=== PATIENT | female | born 1955 | race Caucasian/White ===

== ENCOUNTER 2020-05-16 11:29 | Outpatient (REF) | payer MEDICARE, SELFPAY ==
[2020-05-16 13:54] LABS: Hematocrit 42.3 % (37-47); Hemoglobin 14.2 g/dl (12.0-16.0); Mean Corpuscular HGB Conc 33.6 g/dl (31.0-35.0); Mean Corpuscular Hemoglobin 27.8 pg (27.0-33.0); Mean Corpuscular Volume 82.8 fL (80-98); Mean Platelet Volume 10.5 fL (9.4-12.3); Platelet Count 252 X10*3/uL (160-400); Red Blood Count 5.11 X10*6/uL (4.20-5.50); Red Cell Distribution Width 14.3 % (11.0-16.0)
[2020-05-16 14:21] LABS: Alanine Aminotransferase 27 U/L (0-31); Albumin Level 4.4 g/dL (3.5-5.0); Alkaline Phosphatase 84 U/L (39-117); Anion Gap 10 (12-20); Aspartate Amino Transferase 18 U/L (5-31); Bilirubin Direct 0.3 mg/dL (0.0-0.5); Blood Urea Nitrogen 15 mg/dL (9-16); Calcium 9.7 mg/dL (8.4-10.2); Carbon Dioxide 29 mmol/L (22-29); Chloride 104 mmol/L (96-108); Cholesterol 225 mg/dL; Estimated Glomerular Filt Rate > 60; Glucose Fasting 113 mg/dL (60-99); HDL Cholesterol 66 mg/dL; LDL Cholesterol Calculated 141 mg/dl; Potassium 4.2 mmol/L (3.3-5.1); Sodium 139 mmol/L (135-145); Total Protein 6.8 g/dL (6.5-8.0); Triglycerides 92 mg/dL
[2020-05-16 14:28] LABS: TSH reflex Free T4 1.61 uIU/mL (0.32-4.0)
== END 2020-05-16 11:30 | disposition home or self-care (01) ==
LOC: HO.WFDLDS 11:29
PROVIDERS: PCP Hospitalist; Visit Provider Hospitalist
DX: Z00.00 Encounter for general adult medical examination without abnormal findings (principal)
CPT/HCPCS: 36415; 80048; 80061; 80076; 84443; 85027

== ENCOUNTER 2021-01-19 13:17 | Outpatient (REF) | payer MEDICARE, SELFPAY ==
--- NOTE | ~2021-01-19 | MM_ITS ---
EXAMINATION: MM SCREENING DIGITAL BREAST TOMOSYNTHESIS, BILATERAL CLINICAL INFORMATION: Screening. Asymptomatic. The lifetime risk of breast cancer based on the Tyrer-Cuzick Model is 7%. COMPARISON: Mammography: 10/26/2019, 07/24/2018, 07/02/2016 TECHNIQUE: Digital breast tomosynthesis is performed in both the craniocaudal and mediolateral oblique views along with computer-aided detection (CAD). Synthesized 2D images are generated from the tomosynthesis. FINDINGS: There are scattered areas of fibroglandular density (ACR BI-RADS breast composition Category b). There are no significant masses, abnormal calcifications, or other abnormalities. Incidental dermal lesion overlies posterior 11:00 right breast. There is a benign coarse calcification central upper outer left breast. No significant changes. MM/MM tomosynthesis screening BI IMPRESSION: No mammographic evidence of malignancy. ASSESSMENT: BI-RADS 2: Benign RECOMMENDATION: Routine annual mammography screening. This patient's information was entered into a reminder system with a target due date for their next mammogram.
== END 2021-01-19 13:18 | disposition home or self-care (01) ==
LOC: HO.MAMMO 13:17
PROVIDERS: Visit Provider Family Medicine
DX: Z12.31 Encounter for screening mammogram for malignant neoplasm of breast (principal)
CPT/HCPCS: 77063; 77067

== ENCOUNTER 2021-03-28 19:07 | Outpatient (REF) | payer MEDICARE, SELFPAY | END 2021-03-28 19:08 | disposition home or self-care (01) | LOC: HO.LNP 19:07 | PROVIDERS: Visit Provider Hospitalist | DX: N39.0 Urinary tract infection, site not specified (principal) | CPT/HCPCS: 87086; 87088; 87186 ==

== ENCOUNTER 2021-08-30 12:38 | Outpatient (REF) | payer MEDICARE, SELFPAY ==
[2021-08-30 14:00] LABS: Hematocrit 40.5 % (37.0-47.0); Hemoglobin 13.6 g/dl (12.0-16.0); Mean Corpuscular HGB Conc 33.6 g/dl (31.0-35.0); Mean Corpuscular Volume 83.5 fL (80.0-98.0); Mean Platelet Volume 11.1 fL (9.4-12.3); Platelet Count 245 X10*3/uL (160-400); Red Blood Count 4.85 X10*6/uL (4.20-5.50); Red Cell Distribution Width 14.6 % (11.0-16.0); White Blood Count 5.9 X10*3/uL (4.8-10.8)
[2021-08-30 14:52] LABS: Alanine Aminotransferase 41 U/L (0-31); Albumin Level 4.2 g/dL (3.5-5.0); Alkaline Phosphatase 95 U/L (39-117); Anion Gap 11 (12-20); Aspartate Amino Transferase 27 U/L (5-31); Bilirubin Total 0.9 mg/dL (0.0-1.0); Blood Urea Nitrogen 16 mg/dL (9-16); Carbon Dioxide 26 mmol/L (22-29); Chloride 105 mmol/L (96-108); Cholesterol 220 mg/dL; Estimated Glomerular Filt Rate > 60; Glucose Fasting 100 mg/dL (60-99); HDL Cholesterol 65 mg/dL; LDL Cholesterol Calculated 140 mg/dl; Sodium 138 mmol/L (135-145); Total Protein 6.6 g/dL (6.5-8.0); Triglycerides 77 mg/dL
[2021-08-30 14:57] LABS: TSH reflex Free T4 1.15 uIU/mL (0.32-4.0)
== END 2021-08-30 12:39 | disposition home or self-care (01) ==
LOC: HO.WFDLDS 12:38
PROVIDERS: Visit Provider Hospitalist
DX: I10 Essential (primary) hypertension (principal); Z79.899 Other long term (current) drug therapy; Z13.9 Encounter for screening, unspecified
CPT/HCPCS: 36415; 80053; 80061; 84443; 85027

== ENCOUNTER 2022-07-06 14:28 | Outpatient (REF) | payer MEDICARE, SELFPAY ==
--- NOTE | ~2022-07-06 | MM_ITS ---
EXAMINATION: MM SCREENING DIGITAL BREAST TOMOSYNTHESIS, BILATERAL CLINICAL INFORMATION: Screening. Asymptomatic. The lifetime risk of breast cancer based on the Tyrer-Cuzick Model is 6%. COMPARISON: Mammography: 01/19/2021, 10/26/2019, 07/24/2018, 07/02/2016 TECHNIQUE: Digital breast tomosynthesis is performed in both the craniocaudal and mediolateral oblique views along with computer-aided detection (CAD). Synthesized 2D images are generated from the tomosynthesis. FINDINGS: There are scattered areas of fibroglandular density (ACR BI-RADS breast composition Category b). Parenchymal pattern is similar to prior studies and there is no significant mass, developing density, architectural abnormality. There are some benign grouped calcifications again seen mid central 3:00 left breast. A dermal lesion is again noted overlying right axilla. There are no significant changes. MM/MM tomosynthesis screening BI IMPRESSION: No mammographic evidence of malignancy. ASSESSMENT: BI-RADS 2: Benign RECOMMENDATION: Routine annual mammography screening. This patient's information was entered into a reminder system with a target due date for their next mammogram.
== END 2022-07-06 14:29 | disposition home or self-care (01) ==
LOC: HO.MAMMO 14:28
PROVIDERS: Visit Provider Family Medicine
DX: Z12.31 Encounter for screening mammogram for malignant neoplasm of breast (principal)
CPT/HCPCS: 77063; 77067

== ENCOUNTER 2023-03-01 13:04 | Outpatient (AMB) | payer MEDICARE, SELFPAY ==
[2023-03-01 13:26] VITALS: BP 132/78; PULSE 75; O2SAT 97; BMI 33.5
--- NOTE | 2023-03-01 13:26 | MHC.PC.OV ---
Vital Signs 03/01/23 13:26 Height 5 ft 4 in Weight 195 lb 2 oz BMI 33.5 BP 132/78 Blood Pressure Location Lt brachial Position Sitting Pulse 75 Pulse Source Pulse Oximeter Pulse Oximetry (%) 97 Oxygen Delivery Method Room Air Intake Visit Reasons: Transfer of care - mood and medications Intake Note: Patient is here for transfer of care for mood and medications. Allergies No Known Allergies Allergy (Verified 03/01/23 13:28) Medication List - Last Reconciled 03/01/23 by Carlos Luna MD citalopram 20 mg PO DAILY hydrochlorothiazide 25 mg PO QAM 3 months lisinopril 20 mg PO DAILY scopolamine base 1 patch transdermal Q3D PRN Tobacco use date assessed: 03/01/23 Fall risk assessment: No Falls in past year Last assessed Fall Risk: 03/01/23 HPI Transfer of care - mood and medications HPI Details Transfer of care Prior PCP:?SV Last office visit/CPE: Acute issue(s): Toenail fungus Anxiety/mood -Notes citalopram 20mg daily has been working well for her and mood is in control. PMHx: Hypertension, Anxiety SurgHx: Bilateral knee replacement FHx: FHx of diabetes. SocHx: Nonsmoker. EtOH None. HPI Comments History of Present Illness Details Documentation assistance for Carlos Luna MD, was provided by Jagdeep Ramires, [employer] on 03/01/2023 1:47 PM EST. [place], Dr. Luna, have read, observed, and verified documentation. [facility] Medical History Hypertension Surgical History History of knee surgery Family History Father History of Legionnaire's disease Mother Diabetes Stroke Social History Housing: House Alcohol intake: never Patient Tobacco Use Status: Never used Tobacco e-Cigarette/Vaping Use: Never Used Second Hand Smoke Exposure: No service: No Current occupational status: retired Cognitive needs: No Hearing needs: No Vision needs: Yes (Glasses) Questionnaire PHQ-9 Over the last 2 weeks, how often have you been bothered by any of the following problems? 1. Little interest or pleasure in doing things: not at all 2. Feeling down, depressed, or hopeless: not at all 3. Trouble falling or staying asleep, or sleeping too much: not at all 4. Feeling tired or having little energy: not at all 5. Poor appetite or overeating: not at all 6. Feeling bad about yourself - or that you are a failure or have let yourself or your family down: not at all 7. Trouble concentrating on things, such as reading the newspaper or watching television: not at all 8. Moving or speaking so slowly that other people could have noticed. Or the opposite - being so fidgety or restless that you have been moving around a lot more than usual: not at all 9. Thoughts that you would be better off or of hurting yourself in some way: not at all Total score: 0 Depression Screening Interpretation: Negative Depression Screening Done: Yes 54147 - PHQ-9 Billing: Yes Source: Developed by Drs. Keith Clark, Pricila Toribio, Isaiah Wiklinson and colleagues, with an educational patricia from [employer]. Thrive Questionnaire Date Thrive assessed: 03/01/21 LENI-7 AMB Questionnaire LENI-7 Date LENI - 7 assessed: 03/01/23 Feeling nervous, anxious, or on edge: 0 = Not at all Not being able to stop or control worryin = Not at all Worrying too much about different things: 0 = Not at all Trouble relaxin = Not at all Being so restless that it is hard to sit still: 0 = Not at all Becoming easily annoyed or irritable: 0 = Not at all Feeling afraid as if something awful might happen: 0 = Not at all Total LENI-7 score (0-4 normal; 5-9 mild; 10-14 moderate; 15-21 severe): 0 Source: Developed by Drs. Keith Clark, Pricila Toribio, Isaiah Wilkinson and colleagues, with an educational patricia from [employer]. LENI-7 Assessment Billing LENI-7 Assessment Tool: LENI-7 Assessment 00115 Review of Systems Const Denies chills, Denies fatigue, Denies fever(s), Denies headache(s) and Denies weakness ENT Denies dizziness and Denies headache(s) Card Denies chest pain, Denies lightheadedness, Denies dyspnea and Denies other (Palpitations) Resp Denies cough, Denies dyspnea, Denies wheezing and Denies other ( shortness of breath) Musc Denies numbness and Denies tingling Neuro Denies dizziness, Denies headache(s), Denies numbness, Denies tingling, Denies paresthesias and Denies weakness Psych Reports anxiety Endo Denies fatigue Aller/Immun Denies wheezing Physical exam (Primary Care) Vital Signs: Last Vital Signs Pulse 75 03/01/23 13:26 BP 132/78 03/01/23 13:26 Pulse Ox 97 03/01/23 13:26 Oxygen Delivery Method Room Air 03/01/23 13:26 BMI result Body Mass Index 33.5 Tobacco/Smoking Status: Tobacco use Status Tobacco use date assessed 03/01/23 03/01/23 13:30 Patient Tobacco Use Status Never used Tobacco 03/01/23 13:26 e-Cigarette/Vaping Use Never Used 03/01/23 13:26 PHQ-9: PHQ-9 Score PHQ-9: Total score 0 03/01/23 13:33 Depression Screening Interpretation: Negative Thrive Assessment: Date of Thrive Assessment Date Thrive assessed 03/01/21 03/01/23 13:26 Const General: no acute distress and well developed Nutritional Appearance: well nourished Orientation/consciousness: patient oriented x3 HENMT Head: Yes normocephalic and Yes atraumatic Eyes General: appearance normal, both eyes and all related structures Pupils: Equal, round and reactive pupils present EOM: EOMs intact bilaterally Resp Effort & Inspection: normal respiratory effort Auscultation: clear to auscultation bilaterally Cardio Rate: regular rate Rhythm: regular rhythm Heart sounds: S1 normal heart sound present, S2 normal heart sound present, no gallops, no murmurs and no rubs Neuro General: patient oriented x3 and gait normal Cranial nerves: Yes Equal, round and reactive pupils present Psych Affect: normal affect Assessment and Plan Assessment & Plan (1) Hypertension, essential: Code(s): I10 - Essential (primary) hypertension Plan: Blood?pressure?is?controlled.??Goal?is?less?than?140/90 Continue?current?medication Encouraged?sodium/salt?avoidance Encouraged?exercise?and?weight?loss (2) Anxiety: Code(s): F41.9 - Anxiety disorder, unspecified Plan: Patient?was?started?on?medication?when?her??passed?away?from?COVID-19?after?a?long?hospital?stay Controlled?on?citalopram. Continue?current?medication (3) Elevated ALT measurement: Code(s): R74.01 - Elevation of levels of liver transaminase levels Plan: Very?mild?elevation?in?her?ALT?level This?was?at?her?prior?lab?draw?in?2021 Most?likely?secondary?to?fatty?liver?disorder. Will?repeat?this. Advised?weight?loss?and?good?hydration If?elevated,?will?check?ultrasound?of?her?liver (4) Toenail fungus: Code(s): B35.1 - Tinea unguium Plan: Severe?nail?fungus?on?all?10?toes?with?thickened?black?nails. She?has?tried?many?topical?regimens?and?seen?Podiatry?with?aggressive?filing?and?care?as?well. Prior?physician?declined?to?use?oral?terbinafine. Review?of?her?labs?shows?that?she?had?a?mildly?elevated?ALT. We?discussed?that?at?present?she?is?not?a?candidate?for?this?medication. Will?repeat?her?liver?enzymes We?discussed?that?if?they?are?in?the?normal?range?we?could?consider?using?that?medication?with?a?very?low?threshold?to?stop?it?if?there?is?any?elevation?in?her?liver?enzymes. (5) Motion sickness: Code(s): T75.3XXA - Motion sickness, initial encounter (6) Laboratory exam ordered as part of routine general medical examination: Code(s): Z00.00 - Encounter for general adult medical examination without abnormal findings Orders: Orders Comprehensive [place]. Panel Fast Today Z00.00 - Encounter for general adult medical examination without abnormal findings Complete Blood Count Auto Diff Today Z00.00 - Encounter for general adult medical examination without abnormal findings Lipid Panel Today Z00.00 - Encounter for general adult medical examination without abnormal findings Microalbumin, Random (w Creat) Today I10 - Essential (primary) hypertension UA and rflx microscopic Today Z00.00 - Encounter for general adult medical examination without abnormal findings TSH reflex Free T4 Today Z00.00 - Encounter for general adult medical examination without abnormal findings Medications: Refilled citalopram 20 mg PO DAILY 90 tabs 2RF scopolamine base pt traveling 1 patch transdermal Q3D PRN 5 ea 2RF nausea and vomiting lisinopril 20 mg PO DAILY 90 tabs 3RF I10 - Essential (primary) hypertension hydrochlorothiazide 25 mg PO QAM 90 tabs 1RF 3 months I10 - Essential (primary) hypertension Coding Level of Care Code Est Pt Level 4 (74975) Diagnoses Hypertension, essential I10 Anxiety F41.9 Elevated ALT measurement R74.01 Toenail fungus B35.1 Motion sickness T75.3XXA Laboratory exam ordered as part of routine general medical examination Z00.00 Additional Codes LENI-7 Assessment Billing - LENI-7 Assessment Tool: LENI-7 Assessment 44141 ([id number])
== END 2023-03-01 14:09 | disposition home or self-care (01) ==
PROVIDERS: PCP Hospitalist; Visit Provider Family Medicine
DX: I10 Essential (primary) hypertension (principal); F41.9 Anxiety disorder, unspecified; R74.01 Elevation of levels of liver transaminase levels; B35.1 Tinea unguium; T75.3XXA Motion sickness, initial encounter
CPT/HCPCS: 99214

== ENCOUNTER 2023-03-08 11:08 | Outpatient (REF) | payer MEDICARE, SELFPAY ==
[2023-03-08 13:27] LABS: MANUAL DIFF FLAG NO
[2023-03-08 13:34] LABS: Basophils Percent Auto 0.4 % (0-2); Eosinophils Absolute Auto 0.2 X10*3/uL (0.0-0.4); Eosinophils Percent Auto 2.2 % (0-4); Hematocrit 43.7 % (37.0-47.0); Hemoglobin 14.6 g/dl (12.0-16.0); Imm Gran Abs Auto 0.02 X10*3/uL (0.00-0.03); Imm Gran Pct Auto 0.3 % (0.0-0.4); Lymphocytes Absolute Auto 2.3 X10*3/uL (1.2-4.9); Lymphocytes Percent Auto 33.4 % (20-40); Mean Corpuscular HGB Conc 33.4 g/dl (31.0-35.0); Mean Corpuscular Hemoglobin 27.8 pg (27.0-33.0); Mean Corpuscular Volume 83.1 fL (80.0-98.0); Mean Platelet Volume 10.6 fL (9.4-12.3); Monocytes Absolute Auto 0.5 X10*3/uL (0.1-1.2); Monocytes Percent Auto 7.2 % (2-11); Neutrophils Absolute Auto 3.9 x10*3/uL (2.0-8.3); Neutrophils Percent Auto 56.5 % (45-73); Platelet Count 245 X10*3/uL (160-400); Red Blood Count 5.26 X10*6/uL (4.20-5.50); Red Cell Distribution Width 14.5 % (11.0-16.0); White Blood Count 6.9 X10*3/uL (4.8-10.8)
[2023-03-08 13:41] LABS: Appearance Urine Clear; Color Urine Yellow; Glucose Urine UA Negative (Negative); Leukocyte Esterase Urine Negative (Negative); Nitrite Urine Negative (Negative); Urine Blood Negative (Negative); Urine Ketones Negative (Negative); Urine Protein Negative (Neg-Trace)
[2023-03-08 14:26] LABS: Alanine Aminotransferase 29 U/L (0-31); Albumin Level 4.4 g/dL (3.5-5.0); Alkaline Phosphatase 88 U/L (39-117); Anion Gap 9 (12-20); Aspartate Amino Transferase 23 U/L (5-31); Bilirubin Total 0.9 mg/dL (0.0-1.0); Blood Urea Nitrogen 16 mg/dL (9-16); Calcium 10.2 mg/dL (8.4-10.2); Carbon Dioxide 30 mmol/L (22-29); Chloride 105 mmol/L (96-108); Cholesterol 209 mg/dL (<200); Estimated Glomerular Filt Rate > 60; Glucose Fasting 107 mg/dL (60-99); HDL Cholesterol 70 mg/dL (>40); LDL Cholesterol Calculated 125 mg/dL (<100); Potassium 4.4 mmol/L (3.3-5.1); Sodium 140 mmol/L (135-145); Total Protein 7.1 g/dL (6.5-8.0); Triglycerides 73 mg/dL (<150)
[2023-03-08 14:58] LABS: Creatinine Urine 51.01 mg/dL; Microalbumin Urine < 5.0 mg/L
[2023-03-08 15:15] LABS: TSH reflex Free T4 1.82 uIU/mL (0.32-4.0)
== END 2023-03-08 11:09 | disposition home or self-care (01) ==
LOC: HO.10HDL 11:08
PROVIDERS: Visit Provider Family Medicine
DX: Z00.00 Encounter for general adult medical examination without abnormal findings (principal); I10 Essential (primary) hypertension
CPT/HCPCS: 36415; 80053; 80061; 81003; 82043; 82570; 84443; 85025

== ENCOUNTER 2023-04-24 16:48 | Outpatient (AMB) | payer MEDICARE, SELFPAY ==
--- NOTE | 2023-04-24 16:41 | A.OFFPC_ITS ---
Intake Visit Reasons: f/u labs Intake Note: Patient is following up on lab work today. Patient has a problem with neuropathy in her feet, would like to disuss it troday. Allergies No Known Allergies Allergy (Verified 04/24/23 16:41) Tobacco use date assessed: 04/24/23 Fall risk assessment: No Falls in past year Last assessed Fall Risk: 04/24/23 Dental Screening Dental Screen Date: 04/24/23 HPI f/u labs HPI Details 68 y/o female presents to f/u labs via just[employer]me. Labs were drawn 03/08/23. Reviewed labs with pt. Triglycerides 73. TC 209. LDL 125. HDL 70. Elevated fasting glucose of 107. Pt reports ongoing issues with toenail fungus. PFSH Medical History Hypertension Surgical History History of knee surgery Family History Father History of Legionnaire's disease Mother Diabetes Stroke Social History Housing: House Alcohol intake: never Patient Tobacco Use Status: Never used Tobacco e-Cigarette/Vaping Use: Never Used Second Hand Smoke Exposure: No service: No Current occupational status: retired Cognitive needs: No Hearing needs: No Vision needs: Yes (Glasses) Questionnaire PHQ-9 Over the last 2 weeks, how often have you been bothered by any of the following problems? 1. Little interest or pleasure in doing things: not at all 2. Feeling down, depressed, or hopeless: not at all 3. Trouble falling or staying asleep, or sleeping too much: not at all 4. Feeling tired or having little energy: not at all 5. Poor appetite or overeating: not at all 6. Feeling bad about yourself - or that you are a failure or have let yourself or your family down: not at all 7. Trouble concentrating on things, such as reading the newspaper or watching television: not at all 8. Moving or speaking so slowly that other people could have noticed. Or the opposite - being so fidgety or restless that you have been moving around a lot more than usual: not at all 9. Thoughts that you would be better off or of hurting yourself in some way: not at all Total score: 0 Source: Developed by Drs. Keith Clark, Isaiah Hadley and colleagues, with an educational patricia from [employer]. Thrive Questionnaire Date Thrive assessed: 04/24/23 I am a: Patient What is your living situation today?: I have a steady place to live Within the past 12 months, did the food you bought not last and you didn't have the money to get more?: Never true Within the past 12 months, did you worry whether your food would run out before you got money to buy more?: Never true Do you have trouble paying for medicines?: No Do you have trouble getting transportation to medical appointments?: No Do you have trouble paying your heating and electricity bill?: No Do you have trouble taking care of your child, family member or friend?: No Do you have trouble with day-to-day activities such as bathing, preparing meals, shopping, managing finances, etc.?: No Are you currently unemployed and looking for a job?: No Are you interested in more education?: No THRIVE Score: 0 AUDIT C Alcohol Use Questionnaire (AUDIT-C) 1. How often do you have a drink containing alcohol?: Never 3. How often do you have six or more drinks on one occasion?: Never Total Score: 0 LENI-7 AMB Questionnaire LENI-7 Date LENI - 7 assessed: 04/24/23 Feeling nervous, anxious, or on edge: 0 = Not at all Not being able to stop or control worryin = Not at all Worrying too much about different things: 0 = Not at all Trouble relaxin = Not at all Being so restless that it is hard to sit still: 0 = Not at all Becoming easily annoyed or irritable: 0 = Not at all Feeling afraid as if something awful might happen: 0 = Not at all Total LENI-7 score (0-4 normal; 5-9 mild; 10-14 moderate; 15-21 severe): 0 Source: Developed by Pricila Anand Kurt Kroenke and colleagues, with an educational patricia from [employer]. Review of Systems Const Denies chills, Denies fatigue, Denies fever(s), Denies headache(s) and Denies weakness ENT Denies dizziness and Denies headache(s) Card Denies dyspnea Resp Denies cough, Denies dyspnea, Denies wheezing and Denies other (shortness of breath) Musc Denies numbness and Denies tingling Neuro Denies dizziness, Denies headache(s), Denies numbness, Denies tingling and Denies weakness Psych Denies anxiety and Denies depression Endo Denies fatigue Aller/Immun Denies wheezing Physical exam (Primary Care) Tobacco/Smoking Status: Tobacco use Status Tobacco use date assessed 04/24/23 04/24/23 16:43 Patient Tobacco Use Status Never used Tobacco 04/24/23 16:43 e-Cigarette/Vaping Use Never Used 04/24/23 16:43 PHQ-9: PHQ-9 Score PHQ-9: Total score 0 04/24/23 16:46 Thrive Assessment: Date of Thrive Assessment Date Thrive assessed 04/24/23 04/24/23 16:46 Telehealth Telehealth Minutes spent on Phone/Video with Pt.: 7 Assessment and Plan Assessment & Plan (1) Elevated fasting glucose: Code(s): R73.01 - Impaired fasting glucose Plan: Consistent?but?mildly?elevated?fasting?blood?sugars?and?family?history?of?diabe esme;?mother Will?check?A1c?with?her?next?blood?draw?and?we?can?discuss?at?follow-up?appoint (2) Toenail fungus: Code(s): B35.1 - Tinea unguium Plan: Liver?enzymes?within?normal?limits She?would?like?to?start?terbinafine Risks/benefits?have?been?discussed She?will?recheck?her?liver?enzymes ?about?2?weeks?after?starting?the?medication?and?we?can?review?at?her?follow- up?appointment?in?a?few?weeks. Orders: Orders Hemoglobin A1c Today R73.01 - Impaired fasting glucose Comprehensive [place]. Panel Fast Today B35.1 - Tinea unguium, Z00.00 - Encounter for general adult medical examination without abnormal findings Medications: New terbinafine HCl 250 mg PO DAILY 30 days 30 tabs 0RF Coding Level of Care Code Tele Est Pt Level 2 (32044) Diagnoses Elevated fasting glucose R73.01 Toenail fungus B35.1
== END 2023-04-25 10:30 | disposition home or self-care (01) ==
LOC: HO.HMGFM 16:48
PROVIDERS: PCP Hospitalist; Visit Provider Family Medicine
DX: R73.01 Impaired fasting glucose (principal); B35.1 Tinea unguium
CPT/HCPCS: 99441

== ENCOUNTER 2023-04-26 11:13 | Outpatient (AMB) | payer MEDICARE, SELFPAY ==
--- NOTE | 2023-04-26 11:51 | MHC.OFFWIV ---
Intake Vital Signs 04/26/23 12:21 Weight 189 lb 8 oz BP 104/64 Blood Pressure Location Lt brachial Position Sitting Respiration 12 Pulse 68 Pulse Source Pulse Oximeter Temp 96.4 F L Temp Source Temporal Artery Scan Intake Visit Reasons: ? UTI Patient Tobacco Use Status: Never used Tobacco Frozen Pie Maker Required: No Accompanied by: Self / Same As Patient Allergies No Known Allergies Allergy (Verified 04/26/23 12:59) Medication List - Last Reconciled 04/26/23 by Sirena Lees, [facility]- citalopram 20 mg PO DAILY hydrochlorothiazide 25 mg PO QAM 3 months lisinopril 20 mg PO DAILY scopolamine base 1 patch transdermal Q3D PRN terbinafine HCl 250 mg PO DAILY 30 days Do you need a note to return to daycare/school/sports/work: No HPI ? UTI HPI Details pt states she has been having uti symptoms about 3 wks. has been on a cruise for about 3wk and has tried a product abroad that has had temporary effect Duration 3 wks Relieving factors alkaline product HPI Comments History of Present Illness Details Here today for c/o urinary sx that started while away on vacation Has been treating with URAL that only helps the sx for a short time Denies fever, chills, abd pain. Had one episode of abd pain. Denies vomiting. Did have some hematuria at onset. This cleared and then returned 2 days ago. It is gone today. Has been tx x 3 in the past few years for UTI Chart reviewed She states keflex was not effective Bactim was well last AB levaquin in 05/2021 was effective PFSH Medical History Hypertension Surgical History History of knee surgery Family History Father History of Legionnaire's disease Mother Diabetes Stroke Social History Housing: House Alcohol intake: never Patient Tobacco Use Status: Never used Tobacco e-Cigarette/Vaping Use: Never Used Second Hand Smoke Exposure: No service: No Current occupational status: retired Cognitive needs: No Hearing needs: No Vision needs: Yes (Glasses) Review of Systems Const All systems reviewed & are unremarkable except as noted in HPI and below Physical Exam Vital Signs: Last Vital Signs Temp 96.4 F L 04/26/23 12:21 Pulse 68 04/26/23 12:21 Resp 12 04/26/23 12:21 BP 104/64 04/26/23 12:21 Const Other: awake alert nad MMM RRR LS CTAB No CVAT bilat No abd tenderness Results AMB Urinalysis, Automated UA Leukoctes 125 Sheri/uL Last Edit by MT Bueno on 04/26/23 14:43 UA Nitrite Positive Last Edit by MT Bueno on 04/26/23 14:43 UA Urobilinogen 17 mg/dL Last Edit by MT Bueno on 04/26/23 14:43 UA Protein 0.3 mg/dL Last Edit by MT Bueno on 04/26/23 14:43 UA pH 5.5 Last Edit by MT Bueno on 04/26/23 14:43 UA Blood 80 Thiago/uL Last Edit by MT Bueno on 04/26/23 14:43 UA Specific [place] 1.030 Last Edit by MT Bueno on 04/26/23 14:43 UA Ketone Positive Last Edit by MT Bueno on 04/26/23 14:43 UA Bilirubin 17 mg/dL Last Edit by MT Bueno on 04/26/23 14:43 UA Glucose 0 mg/dL Last Edit by MT Bueno on 04/26/23 14:43 Assessment & Plan Assessment & Plan (1) UTI symptoms: Code(s): R39.9 - Unspecified symptoms and signs involving the genitourinary system Plan: . Total time spent caring for the patient today was 35 minutes. This includes time spent before the visit reviewing the chart, time spent during the visit, and time spent after the visit on documentation Plan urine dip + today tx w levaquin as this is what she reports to be helpful hydrate, ok to use otc remedy to help w discomfort need to watch for s/e from levaquin - stop immediatley should this occur Orders: Orders AMB Urinalysis Automated Today R39.9 - Unspecified symptoms and signs involving the genitourinary system Medications: New levofloxacin 500 mg PO DAILY 3 days 3 tabs 0RF Coding Level of Care Code Est Pt Level 4 (24364) Diagnoses UTI symptoms R39.9
[2023-04-26 12:21] VITALS: BP 104/64; PULSE 68; RESP 12; TEMP 35.8
== END 2023-04-26 13:23 | disposition home or self-care (01) ==
PROVIDERS: PCP Hospitalist; Visit Provider Nurse Practitioner Family
DX: R39.9 Unspecified symptoms and signs involving the genitourinary system (principal)
CPT/HCPCS: 81003; 99214

== ENCOUNTER 2023-05-13 10:38 | Outpatient (AMB) | payer MEDICARE, SELFPAY ==
--- NOTE | 2023-05-13 10:39 | MHC.PC.OV ---
Vital Signs 05/13/23 10:42 Height 5 ft 4 in Weight 191 lb 2 oz BMI 32.8 BP 130/74 Blood Pressure Location Lt brachial Position Sitting Pulse 88 Pulse Source Pulse Oximeter Pulse Oximetry (%) 95 Oxygen Delivery Method Room Air Intake Visit Reasons: MERISSA from [facility] Allergies No Known Allergies Allergy (Verified 05/13/23 10:59) Medication List - Last Reconciled 05/13/23 by MT Bueno citalopram 20 mg PO DAILY hydrochlorothiazide 25 mg PO QAM 3 months lisinopril 20 mg PO DAILY terbinafine HCl 250 mg PO DAILY 30 days Tobacco use date assessed: 04/24/23 Dental Screening Dental Screen Date: 05/13/23 Did you have a dental visit in the last 12 months?: Yes Did you have a dental problem in the last 6 months where you did not have access to dental care?: No Was dental information given to patient?: Patient has dentist HPI HPI Comments History of Present Illness Details 68-year-old female with hypertension, postmenopausal status post hysterectomy age 45, anxiety and depression, impaired Fasting glucose, hyperlipidemia, neuropathy in bilat feet, BPPV, PAD Status post knee replacement Family history: Mom with diabetes and stroke Father with legionnaires disease No changes in the last year Health maintenance: Colonoscopy reports done at [facility] in the last 10 years > record needed Mammogram June of 2022 within normal limits Vaccines does not vaccinate Pap n/a DEXA reports normal done in the last 5 years at [place]. Advised to ask about this at next Mammogram Specialists: None Due for LFT for terbinafine HgA1c for IFG due today would like to have the lab Worried about the neuropathy in her feet. Unsure what caused it. Reports it has been present for about 13 years. Worried about falling. Has not fallen. [facility] Medical History Elevated ALT measurement Toenail fungus Personal history of COVID-19 Hypertension Surgical History History of knee surgery Family History Father History of Legionnaire's disease Mother Diabetes Stroke Social History Housing: House Alcohol intake: never Patient Tobacco Use Status: Never used Tobacco e-Cigarette/Vaping Use: Never Used Second Hand Smoke Exposure: No service: No Current occupational status: retired Cognitive needs: No Hearing needs: No Vision needs: Yes (Glasses) Questionnaire PHQ-9 Over the last 2 weeks, how often have you been bothered by any of the following problems? 1. Little interest or pleasure in doing things: not at all 2. Feeling down, depressed, or hopeless: not at all 3. Trouble falling or staying asleep, or sleeping too much: not at all 4. Feeling tired or having little energy: not at all 5. Poor appetite or overeating: not at all 6. Feeling bad about yourself - or that you are a failure or have let yourself or your family down: not at all 7. Trouble concentrating on things, such as reading the newspaper or watching television: not at all 8. Moving or speaking so slowly that other people could have noticed. Or the opposite - being so fidgety or restless that you have been moving around a lot more than usual: not at all 9. Thoughts that you would be better off or of hurting yourself in some way: not at all Total score: 0 Depression Screening Interpretation: Negative 57386 - PHQ-9 Billing: Yes Source: Developed by Drs. Keith Clark, Pricila Toribio, Isaiah Wilkinson and colleagues, with an educational patricia from [employer]. Thrive Questionnaire Date Thrive assessed: 04/24/23 I am a: Patient What is your living situation today?: I have a steady place to live Within the past 12 months, did the food you bought not last and you didn't have the money to get more?: Never true Within the past 12 months, did you worry whether your food would run out before you got money to buy more?: Never true Do you have trouble paying for medicines?: No Do you have trouble getting transportation to medical appointments?: No Do you have trouble paying your heating and electricity bill?: No Do you have trouble taking care of your child, family member or friend?: No Do you have trouble with day-to-day activities such as bathing, preparing meals, shopping, managing finances, etc.?: No Are you currently unemployed and looking for a job?: No Are you interested in more education?: No Please select the resources that you would like help with: None Currently or been in a relationship where the following occur: no concerns reported THRIVE Score: 0 AUDIT C Alcohol Use Questionnaire (AUDIT-C) 1. How often do you have a drink containing alcohol?: Never 3. How often do you have six or more drinks on one occasion?: Never Total Score: 0 Score Reviewed/Action Taken: Yes LENI-7 AMB Questionnaire LENI-7 Date LENI - 7 assessed: 04/24/23 Feeling nervous, anxious, or on edge: 0 = Not at all Not being able to stop or control worryin = Not at all Worrying too much about different things: 0 = Not at all Trouble relaxin = Not at all Being so restless that it is hard to sit still: 0 = Not at all Becoming easily annoyed or irritable: 0 = Not at all Feeling afraid as if something awful might happen: 0 = Not at all Total LENI-7 score (0-4 normal; 5-9 mild; 10-14 moderate; 15-21 severe): 0 Source: Developed by Drs. Keith Clark, Pricila Toribio, Isaiah Wilkinson and colleagues, with an educational patricia from [employer]. LENI-7 Assessment Billing LENI-7 Assessment Tool: LENI-7 Assessment 08001 Review of Systems Const All systems reviewed & are unremarkable except as noted in HPI and below Physical exam (Primary Care) Vital Signs: Last Vital Signs Pulse 88 05/13/23 10:42 BP 130/74 05/13/23 10:42 Pulse Ox 95 05/13/23 10:42 Oxygen Delivery Method Room Air 05/13/23 10:42 BMI result Body Mass Index 32.8 BMI Assessment/Plan discussion: High BMI High, discussed plan: weight reduction Tobacco/Smoking Status: Tobacco use Status Tobacco use date assessed 04/24/23 05/13/23 10:40 Patient Tobacco Use Status Never used Tobacco 05/13/23 10:40 e-Cigarette/Vaping Use Never Used 05/13/23 10:40 PHQ-9: PHQ-9 Score PHQ-9: Total score 0 05/13/23 11:10 Depression Screening Interpretation: Negative Thrive Assessment: Date of Thrive Assessment Date Thrive assessed 04/24/23 05/13/23 10:40 Currently or been in a relationship where the following occur: no concerns reported Const Other: Awake alert oriented no acute distress Sclera is nonicteric bilat Mucous membranes moist No carotid bruit bilat Regular rate and rhythm Lung sounds clear to auscultation bilat Bilateral lower extremities hairless, varicosities, decreased pedal pulses bilat, thickened fungal toenails across 10 toes, skin intact. Abnormal vibratory sensation bilat, monofilament within normal limits Assessment and Plan Assessment & Plan (1) Impaired fasting glucose: Comment: HGB A1c today 5.5% Code(s): R73.01 - Impaired fasting glucose (2) Postsurgical menopause: Comment: Hysterectomy age 45 Reports DEXA done in the last 5 years. I have advised her to check with [facility] of when this next exam is due when she goes to get her mammogram which is due July 2023 Code(s): E89.40 - Asymptomatic postprocedural ovarian failure (3) Hyperlipidemia: Comment: Not currently on a statin. Reviewed last cholesterol screening done in March of 2023 Code(s): E78.5 - Hyperlipidemia, unspecified Qualifiers: Hyperlipidemia type: mixed hyperlipidemia Qualified Code(s): E78.2 - Mixed hyperlipidemia (4) LENI (generalized anxiety disorder): Comment: Managed well on citalopram Code(s): F41.1 - Generalized anxiety disorder (5) MDD (major depressive disorder): Code(s): F32.9 - Major depressive disorder, single episode, unspecified Qualifiers: Active/Remission status: currently active Major depression episode severity: mild Major depression recurrence: recurrent Qualified Code(s): F33.0 - Major depressive disorder, recurrent, mild (6) Hypertension, essential: Comment: Managed on current therapy which is hydrochlorothiazide 25 mg daily and lisinopril 20 mg daily. I have discontinued the single pill for each of these and sent to the combination the same dose. Code(s): I10 - Essential (primary) hypertension (7) Peripheral neuropathy: Comment: Check labs to determine cause Code(s): G62.9 - Polyneuropathy, unspecified Qualifiers: Peripheral neuropathy type: polyneuropathy, unspecified Qualified Code(s): G62.9 - Polyneuropathy, unspecified (8) Onychomycosis: Comment: Currently managed on terbinafine. LFTs checked today there is a mild bump in the normal AST. She would like to continue on this medication therefore we will repeat this blood work in another to 6 weeks Code(s): B35.1 - Tinea unguium Plan: Repeat LFTs in 2 months Plan This note is constructed using voice recognition software. While every effort has been made to ensure accuracy in pyrotechnician, still errors may have been included Sometimes, these errors may affect the content or meaning of the given sentence . Total time spent caring for the patient today was 45 minutes. This includes time spent before the visit reviewing the chart, time spent during the visit, and time spent after the visit on documentation Orders: Orders Comprehensive Met. Panel Today E78.5 - Hyperlipidemia, unspecified, E89.40 - Asymptomatic postprocedural ovarian failure, F32.9 - Major depressive disorder, single episode, unspecified, F41.1 - Generalized anxiety disorder, I10 - Essential (primary) hypertension, R73.01 - Impaired fasting glucose TSH reflex Free T4 Today E78.5 - Hyperlipidemia, unspecified, E89.40 - Asymptomatic postprocedural ovarian failure, F32.9 - Major depressive disorder, single episode, unspecified, F41.1 - Generalized anxiety disorder, I10 - Essential (primary) hypertension, R73.01 - Impaired fasting glucose Vitamin D 1,25 dihydroxy Today E78.5 - Hyperlipidemia, unspecified, E89.40 - Asymptomatic postprocedural ovarian failure, F32.9 - Major depressive disorder, single episode, unspecified, F41.1 - Generalized anxiety disorder, I10 - Essential (primary) hypertension, R73.01 - Impaired fasting glucose Vitamin B12 and Folate Today E78.5 - Hyperlipidemia, unspecified, E89.40 - Asymptomatic postprocedural ovarian failure, F32.9 - Major depressive disorder, single episode, unspecified, F41.1 - Generalized anxiety disorder, I10 - Essential (primary) hypertension, R73.01 - Impaired fasting glucose Liver Panel 07/01/23 B35.1 - Tinea unguium Hemoglobin A1c Today E78.5 - Hyperlipidemia, unspecified, E89.40 - Asymptomatic postprocedural ovarian failure, F32.9 - Major depressive disorder, single episode, unspecified, F41.1 - Generalized anxiety disorder, I10 - Essential (primary) hypertension, R73.01 - Impaired fasting glucose Zinc Today E78.5 - Hyperlipidemia, unspecified, E89.40 - Asymptomatic postprocedural ovarian failure, F32.9 - Major depressive disorder, single episode, unspecified, F41.1 - Generalized anxiety disorder, I10 - Essential (primary) hypertension, R73.01 - Impaired fasting glucose Medications: New lisinopril-hydrochlorothiazide 20-25 mg 1 tab PO DAILY 90 tabs 1RF Discontinued scopolamine base pt traveling Discontinued Reason: Doctor's Order 1 patch transdermal Q3D PRN 5 ea 2RF nausea and vomiting lisinopril Discontinued Reason: Doctor's Order 20 mg PO DAILY 90 tabs 3RF I10 - Essential (primary) hypertension hydrochlorothiazide Discontinued Reason: Doctor's Order 25 mg PO QAM 3 months 90 tabs 1RF I10 - Essential (primary) hypertension Coding Level of Care Code Est Pt Level 5 (05011) Diagnoses Impaired fasting glucose R73.01 Postsurgical menopause E89.40 Mixed hyperlipidemia E78.2 Hyperlipidemia type: mixed hyperlipidemia LENI (generalized anxiety disorder) F41.1 Mild episode of recurrent major depressive disorder F33.0 Active/Remission status: currently active Major depression episode severity: mild Major depression recurrence: recurrent Hypertension, essential I10 Peripheral polyneuropathy G62.9 Peripheral neuropathy type: polyneuropathy, unspecified Onychomycosis B35.1 Additional Codes LENI-7 Assessment Billing - LENI-7 Assessment Tool: LENI-7 Assessment 65898 ([id number])
[2023-05-13 10:42] VITALS: BP 130/74; PULSE 88; O2SAT 95; BMI 32.8
== END 2023-05-13 11:18 | disposition home or self-care (01) ==
PROVIDERS: PCP Hospitalist; Visit Provider Nurse Practitioner Family
DX: R73.01 Impaired fasting glucose (principal); F33.0 Major depressive disorder, recurrent, mild; E89.40 Asymptomatic postprocedural ovarian failure; E78.2 Mixed hyperlipidemia; F41.1 Generalized anxiety disorder; I10 Essential (primary) hypertension; G62.9 Polyneuropathy, unspecified; B35.1 Tinea unguium
CPT/HCPCS: 99215

== ENCOUNTER 2023-05-13 12:12 | Outpatient (REF) | payer MEDICARE, SELFPAY ==
[2023-05-13 16:00] LABS: Estimated Average Glucose 111 mg/dL; Hemoglobin A1c % 5.5 % (<6.0)
[2023-05-13 16:34] LABS: Alanine Aminotransferase 39 U/L (0-31); Albumin Level 4.1 g/dL (3.5-5.0); Alkaline Phosphatase 95 U/L (39-117); Anion Gap 9 (12-20); Aspartate Amino Transferase 29 U/L (5-31); Bilirubin Total 0.6 mg/dL (0.0-1.0); Blood Urea Nitrogen 12 mg/dL (9-16); Calcium 9.9 mg/dL (8.4-10.2); Carbon Dioxide 28 mmol/L (22-29); Chloride 108 mmol/L (96-108); Estimated Glomerular Filt Rate > 60; Glucose Random 93 mg/dL (60-115); Potassium 4.1 mmol/L (3.3-5.1); Sodium 141 mmol/L (135-145); Total Protein 6.6 g/dL (6.5-8.0)
[2023-05-13 16:41] LABS: TSH reflex Free T4 1.62 uIU/mL (0.32-4.0)
[2023-05-13 17:06] LABS: Folate 11.7 ng/mL (> or = 4.0)
[2023-05-14 02:59] LABS: Vitamin B12 578 pg/mL (200-900)
[2023-05-16 00:13] LABS: Zinc 90 mcg/dL (60-130)
[2023-05-17 11:28] LABS: VITAMIN D (1,25 OH) D3 46 pg/mL; Vit D (1,25-Dihydroxy) Total 46 pg/mL (18-72); Vitamin D (1,25 OH) D2 <8 pg/mL
== END 2023-05-13 12:13 | disposition home or self-care (01) ==
LOC: HO.WFDLDS 12:12
PROVIDERS: Visit Provider Nurse Practitioner Family
DX: R73.01 Impaired fasting glucose (principal); E89.40 Asymptomatic postprocedural ovarian failure; E78.5 Hyperlipidemia, unspecified; F41.1 Generalized anxiety disorder; F32.9 Major depressive disorder, single episode, unspecified; I10 Essential (primary) hypertension
CPT/HCPCS: 36415; 80053; 82607; 82652; 82746; 83036; 84443; 84630

== ENCOUNTER 2023-06-25 09:55 | Outpatient (REF) | payer MEDICARE, SELFPAY ==
[2023-06-25 11:07] LABS: Estimated Average Glucose 111 mg/dL; Hemoglobin A1c % 5.5 % (<6.0)
[2023-06-25 11:11] LABS: Alanine Aminotransferase 107 U/L (0-31); Albumin Level 4.1 g/dL (3.5-5.0); Alkaline Phosphatase 137 U/L (39-117); Anion Gap 9 (12-20); Aspartate Amino Transferase 26 U/L (5-31); Bilirubin Direct 0.2 mg/dL (0.0-0.5); Bilirubin Total 0.6 mg/dL (0.0-1.0); Blood Urea Nitrogen 16 mg/dL (9-16); Carbon Dioxide 29 mmol/L (22-29); Chloride 106 mmol/L (96-108); Estimated Glomerular Filt Rate > 60; Glucose Fasting 111 mg/dL (60-99); Potassium 3.7 mmol/L (3.3-5.1); Sodium 140 mmol/L (135-145); Total Protein 6.7 g/dL (6.5-8.0)
== END 2023-06-25 09:56 | disposition home or self-care (01) ==
LOC: HO.10HDL 09:55
PROVIDERS: Visit Provider Family Medicine
DX: Z00.00 Encounter for general adult medical examination without abnormal findings (principal); R73.01 Impaired fasting glucose; B35.1 Tinea unguium
CPT/HCPCS: 36415; 80053; 80076; 82248; 83036

== ENCOUNTER 2023-07-15 10:36 | Outpatient (AMB) | payer MEDICARE, SELFPAY ==
[2023-07-15 10:38] VITALS: BP 138/76; PULSE 68; RESP 12; O2SAT 96; BMI 33.3
--- NOTE | 2023-07-15 10:38 | MHC.PC.OV ---
Vital Signs 07/15/23 10:38 Height 5 ft 4 in Weight 194 lb BMI 33.3 BP 138/76 Blood Pressure Location Rt brachial Position Sitting Respiration 12 Pulse 68 Pulse Source Pulse Oximeter Pulse Oximetry (%) 96 Oxygen Delivery Method Room Air Intake Visit Reasons: f/u toe nail fungus Intake Note: Patient is following up with toenail fungus. Scrap Metal Collector Required: No Accompanied by: Self / Same As Patient Allergies No Known Allergies Allergy (Verified 07/15/23 10:53) Medication List - Last Reconciled 07/15/23 by Sirena Lees, WELLNESS NURSE- citalopram 20 mg PO DAILY lisinopril-hydrochlorothiazide 20-25 mg 1 tab PO DAILY Tobacco use date assessed: 04/24/23 Dental Screening Dental Screen Date: 05/13/23 HPI HPI Comments History of Present Illness Details 68-year-old fema le with hypertensi on, postmenopausal status post hyste rectomy age 45, an xiety and depressi on, impaired Fasti ng glucose, hyperl ipidemia, neuropat hy in bilat feet, BPPV, PADStatus po st knee replacemen t Family history: Mom with diabetes and stroke Father with legionnaires disease No change s in the last year Health [facility] nce: Colonoscopy r eports done at [facility] in the last 10 years > record needed Mammogram A pril of 2022 withi n normal limits Va ccines does not nd ccinate Pap n/a DEXA reports gloria l done in the last 5 years at [facility]. Advised to ask about this at next Mammogram Speci alists: None Here today for routine follow up and review of her labs: Labs from 06/25/2023 show normal electrolytes, normal BUN and creatinine, elevated fasting glucose 111, hemoglobin A1c 5.5%, normal calcium bilirubin, elevated ALT at 107, normal AST 26, elevated alk phos 137 Lipid profile 03/2023 acceptable Was on terbinafine for toenail fungus. While this has helped her LFTs are not elevated. Stopped taking antifungal about 3 weeks ago. Feeling well w/o abd side effects. Taking nurvive for PN. Unsure if its working or not at this time. No falls Hypertension well controlled on current medications. MDD we will controlled on current medications. Healthcare proxy updated today. JULIANA reviewed and completed today. Both scanned into chart. Original returned to patient [facility] Medical History Elevated ALT measurement Toenail fungus Personal history of COVID-19 Hypertension Surgical History History of knee surgery Family History Father History of Legionnaire's disease Mother Diabetes Stroke Social History Housing: House Alcohol intake: never Patient Tobacco Use Status: Never used Tobacco e-Cigarette/Vaping Use: Never Used Second Hand Smoke Exposure: No service: No Current occupational status: retired Cognitive needs: No Hearing needs: No Vision needs: Yes (Glasses) Questionnaire Thrive Questionnaire Date Thrive assessed: 04/24/23 LENI-7 AMB Questionnaire LENI-7 Date LENI - 7 assessed: 04/24/23 Source: Developed by Drs. Keith Clark, Pricila Toribio, Isaiah Wilkinson and colleagues, with an educational patricia from [employer]. Review of Systems Const All systems reviewed & are unremarkable except as noted in HPI and below Physical exam (Primary Care) Vital Signs: Last Vital Signs Pulse 68 07/15/23 10:38 Resp 12 07/15/23 10:38 BP 138/76 07/15/23 10:38 Pulse Ox 96 07/15/23 10:38 Oxygen Delivery Method Room Air 07/15/23 10:38 BMI result Body Mass Index 33.3 BMI Assessment/Plan discussion: High BMI High, discussed plan: weight reduction Tobacco/Smoking Status: Tobacco use Status Tobacco use date assessed 04/24/23 07/15/23 10:44 Patient Tobacco Use Status Never used Tobacco 07/15/23 10:44 e-Cigarette/Vaping Use Never Used 07/15/23 10:44 Thrive Assessment: Date of Thrive Assessment Date Thrive assessed 04/24/23 07/15/23 10:44 Advance Care Planning discussion: Completed/Scanned Date of discussion: 07/15/23 Who was present: self Forms completed: Health Care Proxy and MOLST Time spent: 16-45 minutes Actual minutes spent: 20 Did not discuss due to Cultural/Spiritual beliefs: Yes Const Other: Awake alert oriented no acute distress Sclera is nonicteric bilat Mucous membranes moist No carotid bruit bilat Regular rate and rhythm Lung sounds clear to auscultation bilat Bilateral lower extremities hairless, varicosities, decreased pedal pulses bilat, thickened fungal toenails across 10 toes, skin intact. Abnormal vibratory sensation bilat, monofilament within normal limits Assessment and Plan Assessment & Plan (1) Elevated LFTs: Comment: Likely related to terbinafine use, which she has stopped using. Repeat LFTs in 3 weeks. If they remain elevated we will need to pursue further workup. Code(s): R79.89 - Other specified abnormal findings of blood chemistry (2) Hyperlipidemia: Comment: Reviewed last cholesterol screening done in March of 2023 which is acceptable. Repeat in 6 months. Code(s): E78.5 - Hyperlipidemia, unspecified Qualifiers: Hyperlipidemia type: mixed hyperlipidemia Qualified Code(s): E78.2 - Mixed hyperlipidemia (3) Impaired fasting glucose: Comment: HGB A1c 5.5% with fasting glucose of 111. Continue to monitor encouraged lifestyle modifications. Code(s): R73.01 - Impaired fasting glucose (4) Peripheral neuropathy: Comment: Labs within normal limits. Start to take nurvive. Feels like she has had some benefit. Advised to continue. Code(s): G62.9 - Polyneuropathy, unspecified Qualifiers: Peripheral neuropathy type: polyneuropathy, unspecified Qualified Code(s): G62.9 - Polyneuropathy, unspecified Plan This note is constructed using voice recognition software. While every effort has been made to ensure accuracy in histology technologist, still errors may have been included Sometimes, these errors may affect the content or meaning of the given sentence . Total time spent caring for the patient today was 60 minutes. This includes time spent before the visit reviewing the chart, time spent during the visit, and time spent after the visit on documentation Orders: Orders Liver Panel 08/05/23 R79.89 - Other specified abnormal findings of blood chemistry Lipid Panel 12/16/23 E78.2 - Mixed hyperlipidemia, G62.9 - Polyneuropathy, unspecified, R73.01 - Impaired fasting glucose, R79.89 - Other specified abnormal findings of blood chemistry Vitamin D 1,25 dihydroxy 12/16/23 E78.2 - Mixed hyperlipidemia, G62.9 - Polyneuropathy, unspecified, R73.01 - Impaired fasting glucose, R79.89 - Other specified abnormal findings of blood chemistry Hemoglobin A1c 12/16/23 E78.2 - Mixed hyperlipidemia, G62.9 - Polyneuropathy, unspecified, R73.01 - Impaired fasting glucose, R79.89 - Other specified abnormal findings of blood chemistry TSH reflex Free T4 12/16/23 E78.2 - Mixed hyperlipidemia, G62.9 - Polyneuropathy, unspecified, R73.01 - Impaired fasting glucose, R79.89 - Other specified abnormal findings of blood chemistry Microalbumin, Random (w Creat) 12/16/23 E78.2 - Mixed hyperlipidemia, G62.9 - Polyneuropathy, unspecified, R73.01 - Impaired fasting glucose, R79.89 - Other specified abnormal findings of blood chemistry Comprehensive [place]. Panel Fast 12/16/23 E78.2 - Mixed hyperlipidemia, G62.9 - Polyneuropathy, unspecified, R73.01 - Impaired fasting glucose, R79.89 - Other specified abnormal findings of blood chemistry Patient Instructions: RTO IN 6 MONTHS FOR ROUTINE F/U SOONER NEEDED Tea tree oil to toe nails daily vicks to toe nails at night White vinegar and water soaks daily 2:1 Coding Level of Care Code Est Pt Level 5 (05665) Diagnoses Elevated LFTs R79.89 Mixed hyperlipidemia E78.2 Hyperlipidemia type: mixed hyperlipidemia Impaired fasting glucose R73.01 Peripheral polyneuropathy G62.9 Peripheral neuropathy type: polyneuropathy, unspecified Additional Codes Vital Signs *Quality* - Advance Care Planning discussion: Completed/Scanned ([id number]) Vital Signs *Quality* - Time spent: 16-45 minutes ([id number]) Vital Signs *Quality* - Did not discuss due to Cultural/Spiritual beliefs: Yes ([id number])
== END 2023-07-15 11:28 | disposition home or self-care (01) ==
PROVIDERS: PCP Hospitalist; Visit Provider Nurse Practitioner Family
DX: R79.89 Other specified abnormal findings of blood chemistry (principal); E78.2 Mixed hyperlipidemia; R73.01 Impaired fasting glucose; G62.9 Polyneuropathy, unspecified; Z00.00 Encounter for general adult medical examination without abnormal findings
CPT/HCPCS: 99215; 99497

== ENCOUNTER 2023-10-15 10:08 | Outpatient (REF) | payer MEDICARE, SELFPAY ==
--- NOTE | ~2023-10-15 | MM_ITS ---
EXAMINATION: BONE DENSITOMETRY CLINICAL INDICATION: Asymptomatic postprocedural ovarian failure. COMPARISON: Previous BD dated 07/24/2018 and baseline BD dated 04/22/2015. TECHNIQUE: Using a mySBX DXA System (software version: 13.1) manufactured by [employer], dual-energy x-ray absorptiometry was performed of the lumbar spine and left hip. The images are of good technical quality. Summary results are attached. FINDINGS: LEFT FEMUR, NECK: Current: BMD 0.812 g/cm2, Z-score -0.5, T-score -1.6, osteopenia. Prior: BMD 0.765 g/cm2. Baseline: BMD 0.856 g/cm2. LEFT FEMUR, TOTAL: Current: BMD 0.911 g/cm2, Z-score 0.1, T-score -0.8, normal, 7.9% increase from previous, 2.1% decrease from baseline (<5% change is not significant). Prior: BMD 0.844 g/cm2. Baseline: BMD 0.931 g/cm2. AP SPINE L1-L3 (excluding L4): The data of L1-L4 has been changed to exclude the L4 vertebral body, because degenerative sclerosis at this level may cause overestimation of lumbar spine density. Current: BMD 0.982 g/cm2, Z-score -0.6, T-score -1.6, osteopenia, 5.3% decrease from previous, 1.0% increase from baseline (<5% change is not significant). Prior: BMD 1.037 g/cm2. Baseline: BMD 0.972 g/cm2. IDENTIFIED RISK FACTORS: Early menopause, family history (parent hip fracture), bilateral oophorectomy, hysterectomy, secondary osteoporosis. HISTORY OF FRACTURE: None listed. MEDICATIONS: Vitamin D. MM/XR DEXA axial skeleton IMPRESSION: 1. DIAGNOSIS: Osteopenia based on the lowest T-score value of -1.6 in the femur neck and lumbar spine applying World Health Organization criteria. 2. 10-YEAR FRACTURE RISK PREDICTION, FRAX: Major osteoporotic fracture (clinical spine, forearm, hip or shoulder) 15.7%. Hip fracture 2.4%. 3. Treatment Recommendations: NOF guidelines recommend consideration for treatment in postmenopausal women and men age 50 and older presenting with the following: -A hip or vertebral (clinical or morphometric) fracture. -T-score less than or equal to -2.5 at the femoral neck or spine after appropriate evaluation to exclude secondary causes. -Low bone mass at the hip or spine and a 10-year fracture probability by FRAX of greater than or equal to 3% for hip fracture or greater than or equal to 20% for major osteoporotic fracture based on the [place] adapted WHO algorithm. 4. Other Recommendations: All treatment decisions require clinical judgment and consideration of individual patient factors, including patient preferences, comorbidities, previous drug use, risk factors not captured in the FRAX model (e.g. frailty, falls, vitamin D deficiency, increased bone turnover, interval significant decline in bone density) and possible under or overestimation of fracture risk by FRAX. Additional medical evaluation for secondary cause of low bone mineral density may be appropriate. FUTURE SCAN RECOMMENDATION: People with diagnosed cases of osteoporosis or at high risk for fracture should have regular bone mineral density tests. For patients eligible for Medicare, routine testing is allowed once every 2 years. The testing frequency can be increased to one year for patients who have rapidly progressing disease, those who are receiving or discontinuing medical therapy to restore bone mass, or have additional risk factors.
== END 2023-10-15 10:09 | disposition home or self-care (01) ==
LOC: HO.MAMMO 10:08
PROVIDERS: PCP Nurse Practitioner Family; Visit Provider Nurse Practitioner Family
DX: Z12.31 Encounter for screening mammogram for malignant neoplasm of breast (principal); Z13.820 Encounter for screening for osteoporosis; Z78.0 Asymptomatic menopausal state; E89.40 Asymptomatic postprocedural ovarian failure
CPT/HCPCS: 77063; 77067; 77080

== ENCOUNTER → 2023-10-15 10:15 | Outpatient (BNV) | payer MEDICARE, SELFPAY | PROVIDERS: PCP Nurse Practitioner Family; Visit Provider Radiology Diagnostic Radiology | DX: Z12.31 Encounter for screening mammogram for malignant neoplasm of breast (principal) | CPT/HCPCS: 77063; 77067 ==

== ENCOUNTER 2023-10-15 11:25 | Outpatient (REF) | payer MEDICARE, SELFPAY ==
[2023-10-15 13:29] LABS: Alanine Aminotransferase 34 U/L (0-31); Albumin Level 4.4 g/dL (3.5-5.0); Alkaline Phosphatase 103 U/L (39-117); Aspartate Amino Transferase 24 U/L (5-31); Bilirubin Direct 0.3 mg/dL (0.0-0.5); Bilirubin Total 0.8 mg/dL (0.0-1.0); Total Protein 6.7 g/dL (6.5-8.0)
== END 2023-10-15 11:26 | disposition home or self-care (01) ==
LOC: HO.10HDL 11:25
PROVIDERS: Visit Provider Nurse Practitioner Family
DX: R79.89 Other specified abnormal findings of blood chemistry (principal)
CPT/HCPCS: 36415; 80076

== ENCOUNTER 2024-01-20 10:40 | Outpatient (AMB) | payer MEDICARE, SELFPAY ==
--- NOTE | 2024-01-20 10:43 | MHC.PC.OV ---
Vital Signs 01/20/24 10:47 Height 5 ft 4 in Weight 193 lb 2 oz BMI 33.1 BP 134/74 Blood Pressure Location Lt brachial Position Sitting Respiration 14 Pulse 77 Pulse Source Pulse Oximeter Pulse Oximetry (%) 97 Oxygen Delivery Method Room Air Intake Visit Reasons: 6 months w de Routine fu Intake Note: routine follow up, patient also has right arm pain and right rib from a fall on saturday night. Needs refill on hypertension meds Allergies No Known Allergies Allergy (Verified 01/20/24 10:46) Tobacco use date assessed: 04/24/23 Dental Screening Dental Screen Date: 05/13/23 [facility] Medical History Elevated ALT measurement Toenail fungus Personal history of COVID-19 Hypertension Surgical History History of knee surgery Family History Father History of Legionnaire's disease Mother Diabetes Stroke Social History Housing: House Alcohol intake: never Patient Tobacco Use Status: Never used Tobacco e-Cigarette/Vaping Use: Never Used Second Hand Smoke Exposure: No service: No Current occupational status: retired Cognitive needs: No Hearing needs: No Vision needs: Yes (Glasses) Questionnaire PHQ-9 Over the last 2 weeks, how often have you been bothered by any of the following problems? 1. Little interest or pleasure in doing things: not at all 2. Feeling down, depressed, or hopeless: not at all 3. Trouble falling or staying asleep, or sleeping too much: not at all 4. Feeling tired or having little energy: not at all 5. Poor appetite or overeating: not at all 6. Feeling bad about yourself - or that you are a failure or have let yourself or your family down: not at all 7. Trouble concentrating on things, such as reading the newspaper or watching television: not at all 8. Moving or speaking so slowly that other people could have noticed. Or the opposite - being so fidgety or restless that you have been moving around a lot more than usual: not at all 9. Thoughts that you would be better off or of hurting yourself in some way: not at all Total score: 0 Depression Screening Done: Yes 90028 - PHQ-9 Billing: Yes Source: Developed by Drs. Keith Clark, Pricila Toribio, Isaiah Wilkinson and colleagues, with an educational patricia from [employer]. Thrive Questionnaire Date Thrive assessed: 01/20/24 I am a: Patient What is your living situation today?: I have a steady place to live Within the past 12 months, did the food you bought not last and you didn't have the money to get more?: Never true Within the past 12 months, did you worry whether your food would run out before you got money to buy more?: Never true Do you have trouble paying for medicines?: No Do you have trouble getting transportation to medical appointments?: No Do you have trouble paying your heating and electricity bill?: No Do you have trouble taking care of your child, family member or friend?: No Do you have trouble with day-to-day activities such as bathing, preparing meals, shopping, managing finances, etc.?: No Are you currently unemployed and looking for a job?: No Are you interested in more education?: No Please select the resources that you would like help with: None Currently or been in a relationship where the following occur: No concerns reported THRIVE Score: 0 AUDIT C Alcohol Use Questionnaire (AUDIT-C) 1. How often do you have a drink containing alcohol?: Never 3. How often do you have six or more drinks on one occasion?: Never Total Score: 0 LENI-7 AMB Questionnaire LENI-7 Date LENI - 7 assessed: 01/20/24 Feeling nervous, anxious, or on edge: 0 = Not at all Not being able to stop or control worryin = Not at all Worrying too much about different things: 0 = Not at all Trouble relaxin = Not at all Being so restless that it is hard to sit still: 0 = Not at all Becoming easily annoyed or irritable: 0 = Not at all Feeling afraid as if something awful might happen: 0 = Not at all Total LENI-7 score (0-4 normal; 5-9 mild; 10-14 moderate; 15-21 severe): 0 Source: Developed by Drs. Keith Clark, Pricila Toribio, Isaiah Wilkinson and colleagues, with an educational patricia from [employer] LENI-7 Assessment Billing LENI-7 Assessment Tool: LENI-7 Assessment 33124 Physical exam (Primary Care) Tobacco/Smoking Status: Tobacco use Status Tobacco use date assessed 04/24/23 07/15/23 10:44 Patient Tobacco Use Status Never used Tobacco 07/15/23 10:44 e-Cigarette/Vaping Use Never Used 07/15/23 10:44 Thrive Assessment: Date of Thrive Assessment Date Thrive assessed 01/14/24 01/14/24 14:06 Currently or been in a relationship where the following occur: No concerns reported Coding Additional Codes LENI-7 Assessment Billing - LENI-7 Assessment Tool: LENI-7 Assessment 29762 ([id number])
[2024-01-20 10:47] VITALS: BP 134/74; PULSE 77; RESP 14; O2SAT 97; BMI 33.1
--- NOTE | 2024-01-20 10:49 | A.OFFVIS_ITS ---
Intake Vital Signs 01/20/24 10:47 01/20/24 10:52 Height 5 ft 4 in Weight 193 lb 2 oz BMI 33.1 33.1 BP 134/74 Blood Pressure Location Lt brachial Position Sitting Respiration 14 Pulse 77 Pulse Source Pulse Oximeter Pulse Oximetry (%) 97 Oxygen Delivery Method Room Air Intake Visit Reasons: 6 months w me Routine fu Allergies No Known Allergies Allergy (Verified 01/20/24 10:57) Medication List - Last Reconciled 01/20/24 by Sirena Lees, SPRAY STAINER- citalopram 20 mg PO DAILY lisinopril-hydrochlorothiazide 20-25 mg 1 tab PO DAILY HPI HPI Comments History of Present Illness Details Here today for AWV. The Medicare Annual Wellness Visit (AWV) is a yearly appointment with a health professional to identify health risks and help reduce them and to create or update a personalized prevention plan. During a Medicare AWV, health professionals should also review any current opioid prescriptions, detect any cognitive impairment, and establish or update medical and family history. 69-year-old female with hypertension, po stmenopausal status post hysterectomy age 45, anxiety and depression, impaired Fasting glucose, hyperlipidemia, neuropathy in bilat feet, BPPV, PAD SurgHx: Status post knee replacement SocHx: Retired, working for a caterer 9 hours/week, 1 son alive and well, 1 dtr alive and well Family history: Mom with diabetes and stroke Father with legionnaires disease No changes in the last year Health maintenance: See scanned preventative medicine assessment with personalized health plan and screening schedule Colonoscopy reports done at [facility] in the last 10 years > record needed Mammogram 10/15/23 BI-RADS BI-RADS 1 - Negative Vaccines does not vaccinate Pap n/a DEXA 10/15/23 Osteopenia based on the lowest T-score value of -1.6 in the femur neck and lumbar spine applying World Health Organization criteria. AAA screen NA EKG: deferred given pain Visual Acuity: glasses, active w/ optho for routine exams, last one 2023 Hearing Screening: no concerns ACP: UTD Dietary/Nutrition/Exercise Edu provided: Y [place] of Care: Optho During the course of the visit the patient was educated and counseled about appropriate screening and preventative services. Patient instructions were provided to the patient in written or electronic format. I have reviewed and verified the above information. Problem: Mechanical fal Saturday night did not see the stair, landed on R arm and chest. Did not hit head. Did not have LOC. She did not seek medical care. Having pain w/ supination and pronation of R arm and pain in anterior r ribs. Taking APAP ED q6 hours it is helping Denies trouble breathing, hemoptysis. Exam: Awake alert oriented tearful, accompanied by dtr Vannesa Sclera is nonicteric bilat Mucous membranes moist No carotid bruit bilat Regular rate and rhythm Lung sounds clear to auscultation bilat, no crepitus, no obvious rib deformity. Pain over r anterior lower ribs w/ palpation Right elbow LROM d/t pain, neurovasc intact, pain over elbow/radius/ulnar proximal to the elbow with some localized edema to this area Bilateral lower extremities hairless, varicosities, decreased pedal pulses bilat, thickened fungal toenails across 10 toes, skin intact. Abnormal vibratory sensation bilat, monofilament within normal limits Plan Xrays today. Pt called at 1720 with results of R arm which is negative. CXR is pending. Start tramadol 252-50mg po BID prn for pain, use sparingly, take w/ APAP is ok, NTE 3 gm24 hours I will fu with her when results are available of CXR Ice, gentle ROM, stretching, deep breathing. Edu on reasons to seek sooner/additional care, otherwise RTO 6 months routine fu, sooner PRN This note is constructed using voice recognition software. While every effort has been made to ensure accuracy in controller repairer and tester, still errors may have been included Sometimes, these errors may affect the content or meaning of the given sentence . An additional 20 was spent addressing the problem(s) noted at todays visit. This includes time spent before the visit reviewing the chart, time spent during the visit, and time spent after the visit on documentation [facility] Medical History Elevated ALT measurement Toenail fungus Personal history of COVID-19 Hypertension Surgical History History of knee surgery Family History Father History of Legionnaire's disease Mother Diabetes Stroke Social History Housing: House Alcohol intake: never Patient Tobacco Use Status: Never used Tobacco e-Cigarette/Vaping Use: Never Used Second Hand Smoke Exposure: No service: No Current occupational status: retired Cognitive needs: No Hearing needs: No Vision needs: Yes (Glasses) Questionnaire Medicare Wellness Checkup What [age] What gender do you identify with?: female During the past 4 weeks, how much have you been bothered by emotional problems such as feeling anxious, depressed, irritable, sad or downhearted, and blue?: not at all During the past 4 weeks, has your physical & emotional health limited your social activities with family, friends, neighbors, or groups?: not at all During the past 4 weeks, how much bodily pain have you generally had?: moderate pain (due to fall) During the past 4 weeks, was someone available to help you if you needed & wanted help?: yes, as much as I wanted During the past 4 weeks, what was the hardest physical activity you could do for at least 2 minutes?: moderate Can you get to places out of walking distance without help? (For eg., can you travel alone on buses, taxis or drive your car?): Yes Can you go shopping for groceries or clothes without someone's help?: Yes Can you prepare your own meals?: Yes Can you do your housework without help?: Yes Because of any health problems, do you need the help of another person with your personal care needs such as eating, bathing, dressing or getting around the house?: No Can you handle your own money without help?: Yes During the past 4 weeks, how would you rate your health in general?: excellent During the past 4 weeks how have things been going for you?: very well; could hardly better Are you having difficulties driving your car?: no Do you always fasten your seat belt when you are in a car?: yes, usually During past 4 weeks, have you been bothered by the following: never: Falling or dizzy when standing up, Sexual problems?, Trouble eating well?, Teeth or denture problems?, Problems using the telephone? and Tiredness or fatigue? Have you fallen 2 or more times in the past year?: No Are you afraid of falling?: No Are you a smoker?: no During the past 4 weeks, how many drinks of wine, beer, or other alcoholic beverages did you have?: no alcohol at all Do you exercise for about 20 minutes 3 or more times a week?: yes, some of the time Have you been given information to help with the following?: no: Hazards in your house that might hurt you? and no: Keeping track of your medications? How often do you have trouble taking medicines the way you have been told to take them?: I always take medicine as prescribed How confident are you that you can control & manage most of your health problems?: very confident What is your race?: White Activity of Daily Living Bathing - sponge bath, tub bath or shower: receives no assistance (gets in/out by self, if usual bathing means Dressing - getting clothes from closets & drawers, including inner/outer garments & fasteners.: gets clothes & gets completely dressed without help Toileting - going to the 'toilet room' for urine/bowel elimination & cleaning self/arranging clothes: goes to toilet room, cleans self, arranges clothes without help Transfer: moves in & out of bed and chair without help (may use support object) Continence: controls urination/bowel movements completely by self Feeding: feeds self without help Total Score: 0 Information obtained from: patient Using telephone: independent Traveling: independent Shopping: independent Preparing meals: independent Housework: independent Taking medicine: independent Managing money: independent PHQ-9 Over the last 2 weeks, how often have you been bothered by any of the following problems? 1. Little interest or pleasure in doing things: not at all 2. Feeling down, depressed, or hopeless: not at all 3. Trouble falling or staying asleep, or sleeping too much: not at all 4. Feeling tired or having little energy: not at all 5. Poor appetite or overeating: not at all 6. Feeling bad about yourself - or that you are a failure or have let yourself or your family down: not at all 7. Trouble concentrating on things, such as reading the newspaper or watching television: not at all 8. Moving or speaking so slowly that other people could have noticed. Or the opposite - being so fidgety or restless that you have been moving around a lot more than usual: not at all 9. Thoughts that you would be better off or of hurting yourself in some way: not at all Total score: 0 Depression Screening Interpretation: Negative Depression Screening Done: Yes 73763 - PHQ-9 Billing: Yes Source: Developed by Drs. Keith Clark, Pricila Toribio, Isaiah Wilkinson and colleagues, with an educational patricia from [employer]. Physical Exam Vital Signs: Last Vital Signs Pulse 77 01/20/24 10:47 Resp 14 01/20/24 10:47 BP 134/74 01/20/24 10:47 Pulse Ox 97 01/20/24 10:47 Oxygen Delivery Method Room Air 01/20/24 10:47 BMI result Body Mass Index 33.1 Results AMB Hemoglobin A1c AMB Hemoglobin A1c 5.7 % Last Edit by Manan Padilla MA on 01/20/24 11:17 Results Reviewed Results Reviewed: Laboratory Last Values Hgb A1c (Clinic) 5.7 % (4.0-6.0) 01/20/24 10:58 [facility] [address] [place] [address] [place] [address] XRay Report Signed Patient: Trinidad Preez MR#: [id number] : 1955 Acct:[id number] Age/Sex: 69 / F ADM Date: 01/20/24 Loc: HO.HMGCX Attending Dr: Sirena AMOR Ordering Physician: Sirena Lees Date of Service: 01/20/24 Procedure(s): XR humerus RT Accession Number(s): [id number] cc: Sirena Lees~ EXAMINATION: Right forearm x-ray series. Right elbow x-ray series. Right humerus x-ray series. CLINICAL INFORMATION: Right arm pain status post fall. COMPARISON: None. TECHNIQUE: 2 views of the right humerus. 2 views of the right forearm. 3 views of the right elbow FINDINGS: Right humerus: The bones and surrounding soft tissues are normal. Incidental note made of moderate osteoarthritis of the acromioclavicular joint. Right elbow: The bones joints and soft tissues are normal. No fracture. No effusion. Right forearm: No acute abnormality. Incidental note made of mild osteoarthritis of the 1st carpometacarpal joint XR/XR humerus RT IMPRESSION: No acute abnormality of the right humerus, right elbow, and right forearm Osteoarthritis Electronically signed by: Dipak Farooq MD 01/20/2024 04:16 PM EDT RP Dictated By: Dipak Farooq MD Signed By: <Electronically signed by Dipak Farooq MD in OV> 01/20/24 1616 DD/ 1206 TD/TT: 01/20/24 1224 Captain'S Assistant: KENNEDY Assessment & Plan Assessment & Plan (1) Encounter for subsequent annual wellness visit (AWV) in Medicare patient: Code(s): Z00.00 - Encounter for general adult medical examination without abnormal findings Plan: . (2) Osteopenia: Comment: DEXA 09/2023 DIAGNOSIS: Osteopenia based on the lowest T-score value of -1.6 in the femur neck and lumbar spine Code(s): M85.80 - Other specified disorders of bone density and structure, unspecified site Qualifiers: Osteopenia location: lumbar spine Qualified Code(s): M85.88 - Other specified disorders of bone density and structure, other site Plan: . (3) Screening for diabetes mellitus: Code(s): Z13.1 - Encounter for screening for diabetes mellitus Plan: . (4) Fall: Code(s): W19.XXXA - Unspecified fall, initial encounter Qualifiers: Encounter type: initial encounter Qualified Code(s): W19.XXXA - Unspecified fall, initial encounter Plan: . (5) Right arm pain: Code(s): M79.601 - Pain in right arm Plan: . (6) Rib pain on right side: Code(s): R07.81 - Pleurodynia Plan: . Orders: Orders AMB Hemoglobin A1c Today Z13.9 - Encounter for screening, unspecified XR elbow RT min 3V Today W19.XXXA - Unspecified fall, initial encounter XR humerus RT Today W19.XXXA - Unspecified fall, initial encounter XR forearm RT 2V Today M85.80 - Other specified disorders of bone density and structure, unspecified site, W19.XXXA - Unspecified fall, initial encounter XR chest 2V Today M85.80 - Other specified disorders of bone density and structure, unspecified site, W19.XXXA - Unspecified fall, initial encounter Medications: New tramadol 1/2 to 1 tab twice per day as needed for pain 50 mg PO BID PRN 30 tabs 0RF pain Refilled lisinopril-hydrochlorothiazide 20-25 mg 1 tab PO DAILY 90 tabs 1RF Quality Reporting (2019) Adult ([facility] 138/2/69) Smoking risk assessment performed?: Yes Patient Tobacco Use Status: Never used Tobacco Depression screening performed: Yes Screen Results: Yes Negative screen Systolic BP not done?: No Diastolic BP not done?: No BMI screening not done: No BMI High - Follow Up: Yes High-plan (life style mods) Sexual Activity Screening ([facility] 153) Sexually active?: No Immunizations ([facility] 147, 117) Annual Influenza Vaccine: No Flu Vaccine not done: patient reason Measles Antibody Test: No Mumps Antibody Test: No Rubella Antibody Test: No Varicella Antibody Test: No Anti Hepatitis A IgG Antigen test: No Anti Hepatitis B Virus Surface Ab test: No Fall Risk Screening ([facility] 139) Last assessed Fall Risk: 01/20/24 Fall risk assessment: 1 Fall in past year Dementia Assessment ([facility] 149) Cognitive assessment recorded: Yes Assessment of cognition with standardized tool: Yes Depression/Bipolar (159/160/161/177) PHQ-9: Total score: 0 Suicide risk assessment performed: Yes Ophthalmol:Cataracts Visual Acuity (133) Visual acuity exam performed: Yes (routine eye exam, UTD, wears glasses ) Coding Level of Care Code Medicare Subsequent (G0439) Est Pt Level 4 (34460) Diagnoses Encounter for subsequent annual wellness visit (AWV) in Medicare patient Z00.00 Osteopenia of lumbar spine M85.88 Osteopenia location: lumbar spine Screening for diabetes mellitus Z13.1 Fall, initial encounter W19.XXXA Encounter type: initial encounter Right arm pain M79.601 Rib pain on right side R07.81 CPT Codes Advance Care Planning - Time spent: 1-15 minutes, not on file ([id number]) Advance Care Planning Advance Care Planning discussion: Completed/Scanned Date of discussion: 01/20/24 Forms completed: Health Care Proxy and MOLST Time spent: 1-15 minutes, not on file Actual minutes spent: 5
[2024-01-20 10:52] VITALS: BMI 33.1
== END 2024-01-20 11:11 | disposition home or self-care (01) ==
PROVIDERS: PCP Nurse Practitioner Family; Visit Provider Nurse Practitioner Family
DX: Z00.00 Encounter for general adult medical examination without abnormal findings (principal); M85.88 Other specified disorders of bone density and structure, other site; Z13.1 Encounter for screening for diabetes mellitus; W19.XXXA Unspecified fall, initial encounter; M79.601 Pain in right arm; R07.81 Pleurodynia

== ENCOUNTER 2024-01-20 11:52 | Outpatient (REF) | payer MEDICARE, SELFPAY ==
--- NOTE | ~2024-01-20 | XR_ITS ---
EXAMINATION: Right forearm x-ray series. Right elbow x-ray series. Right humerus x-ray series. CLINICAL INFORMATION: Right arm pain status post fall. COMPARISON: None. TECHNIQUE: 2 views of the right humerus. 2 views of the right forearm. 3 views of the right elbow FINDINGS: Right humerus: The bones and surrounding soft tissues are normal. Incidental note made of moderate osteoarthritis of the acromioclavicular joint. Right elbow: The bones joints and soft tissues are normal. No fracture. No effusion. Right forearm: No acute abnormality. Incidental note made of mild osteoarthritis of the 1st carpometacarpal joint XR/XR elbow RT min 3V IMPRESSION: No acute abnormality of the right humerus, right elbow, and right forearm Osteoarthritis Electronically signed by: Dipak Farooq MD 01/20/2024 04:16 PM EDT
--- NOTE | ~2024-01-20 | XR_ITS ---
EXAMINATION: Right forearm x-ray series. Right elbow x-ray series. Right humerus x-ray series. CLINICAL INFORMATION: Right arm pain status post fall. COMPARISON: None. TECHNIQUE: 2 views of the right humerus. 2 views of the right forearm. 3 views of the right elbow FINDINGS: Right humerus: The bones and surrounding soft tissues are normal. Incidental note made of moderate osteoarthritis of the acromioclavicular joint. Right elbow: The bones joints and soft tissues are normal. No fracture. No effusion. Right forearm: No acute abnormality. Incidental note made of mild osteoarthritis of the 1st carpometacarpal joint XR/XR forearm RT 2V IMPRESSION: No acute abnormality of the right humerus, right elbow, and right forearm Osteoarthritis Electronically signed by: Dipak Farooq MD 01/20/2024 04:16 PM EDT
--- NOTE | ~2024-01-20 | XR_ITS ---
EXAMINATION: XR CHEST CLINICAL INFORMATION: Fall. Right anterior rib pain. COMPARISON: Chest radiograph dated 09/01/2016. TECHNIQUE: 2 views of the chest were obtained. FINDINGS: No airspace consolidation. No pleural effusion or pneumothorax. Stable cardiomediastinal silhouette. No displaced rib fracture, however, evaluation somewhat limited on chest radiograph. XR/XR chest 2V IMPRESSION: No acute cardiopulmonary findings. No displaced fracture. Electronically signed by: Kenton Sheehan MD 01/20/2024 08:07 PM EDT
--- NOTE | ~2024-01-20 | XR_ITS ---
EXAMINATION: Right forearm x-ray series. Right elbow x-ray series. Right humerus x-ray series. CLINICAL INFORMATION: Right arm pain status post fall. COMPARISON: None. TECHNIQUE: 2 views of the right humerus. 2 views of the right forearm. 3 views of the right elbow FINDINGS: Right humerus: The bones and surrounding soft tissues are normal. Incidental note made of moderate osteoarthritis of the acromioclavicular joint. Right elbow: The bones joints and soft tissues are normal. No fracture. No effusion. Right forearm: No acute abnormality. Incidental note made of mild osteoarthritis of the 1st carpometacarpal joint XR/XR humerus RT IMPRESSION: No acute abnormality of the right humerus, right elbow, and right forearm Osteoarthritis Electronically signed by: Dipak Farooq MD 01/20/2024 04:16 PM EDT
== END 2024-01-20 11:53 | disposition home or self-care (01) ==
LOC: HO.HMGCX 11:52
PROVIDERS: PCP Nurse Practitioner Family; Visit Provider Nurse Practitioner Family
DX: M85.80 Other specified disorders of bone density and structure, unspecified site (principal); W19.XXXA Unspecified fall, initial encounter
CPT/HCPCS: 71046; 73060; 73080; 73090; 83036; 99212

== ENCOUNTER 2024-10-29 09:26 | Outpatient (REF) | payer MEDICARE, SELFPAY ==
--- NOTE | ~2024-10-29 | MM_ITS ---
EXAMINATION: MM SCREENING DIGITAL BREAST TOMOSYNTHESIS, BILATERAL CLINICAL INFORMATION: Screening. Asymptomatic. COMPARISON: Mammography: Comparison is made with available priors TECHNIQUE: Digital breast mammography with tomosynthesis is performed in both the craniocaudal and mediolateral oblique views along with computer-aided detection (CAD). FINDINGS: There are scattered areas of fibroglandular density (ACR BI-RADS breast composition Category b). There are no significant masses, abnormal calcifications, or other abnormalities. MM/MM tomosynthesis screening BI IMPRESSION: No mammographic evidence of malignancy. ASSESSMENT: BI-RADS BI-RADS 1 - Negative RECOMMENDATION: Routine annual mammography screening. 1 year F/U This examination should not preclude the clinical evaluation of a suspicious palpable abnormality. This patient's information was entered into a reminder system with a target due date for their next mammogram. Electronically signed by: Veronica Lunsford DO 11/09/2024 02:15 PM EDT
--- OUTSIDE RECORDS SUMMARY | 2024-10-29 09:46 | XMS_ITS | Patient Health Record ---
Author Organization [facility] Address [address] [address] Care Team Providers Care Marina Manager Name Role Phone Sirena Sutton Primary Care Provider Unavailab Osman Hay Unavailable [phone] Reason For Referral No Information Medications Medication SIG (Take, Route, Frequency, Duration) Notes Start Date End Date Status GaviLyte-G Not-Takin g Hydrocortisone 1 % 1 application to affected area Rectal Twice a day Not-Taking Nystatin 517333 UNIT/GM 1 application to affected area Externally Twice a day Not-Taking Vitamin D Active Baby Aspirin Active Multivitamin Adult A ctive Lisinopril 20 MG Orally Act gloria Terbinafine HCl 250 MG 1 tablet Orally O nce a day Not-Taking Scopolamine 1 MG/3DAYS Transdermal Not-Taking Ciclopirox 0.77 % 1 application to affected area Externally Twice a day to effected nails; Duration: 30 days 01/09/2019 Active Social History Tobacco Use: Social History Observation Description Date Details (start date - stop date) Never Smoker NA - NA Tobacco Use/Smoking Question Answer Notes Are you a: nonsmoker Additional Findings: Tobacco Non-User Current no n-smoker Alcohol Screen Question Answer Notes Did you have a drink containing alcohol in the p ast year? No Points 0 Interpretation Negative Tobacco use other than smoking: Question Answer Notes Are you an other tobacco user? No Problems Problem Type SNOMED Code ICD Code Onset Dates Problem Status W/U Status Risk Notes Problem Tinea unguium (254177785) Tinea unguium (B35.1) Active confirmed Plan Of Treatment Pending Test Test Name Order Date [id number] NAIL, 6 OR MORE 10/11/2017 [id number] NAIL, 6 OR MORE 12/31/2017 [id number] NAIL, 6 OR MORE 04/25/2018 [id number] NAIL, 6 OR MORE 07/25/2018 [id number] NAIL, 6 OR MORE 01/09/2019 [id number] NAIL, 6 OR MORE 04/17/2019 Insurance Providers Payer Name Payer Address Payer Phone Subscriber Number Group Number Insured Name Patient Relationship to Insured Coverage Start Date Coverage End Date [facility] [address] [place] [address] [id number] Trinidad Perez Self - patient is the insured Medical (General) History Medical History History ICD Code Arthritis High blood pressure Neuropathy Measles Mumps Chicken pox Joint implants/screws Transfusions Surgical History Surgery Date(Month/Year) right knee replacement 08/2011 left knee replacement - needed blood tra nsfusion 10/2011
== END 2024-10-29 09:27 | disposition home or self-care (01) ==
LOC: HO.MAMMO 09:26
PROVIDERS: PCP Nurse Practitioner Family; Visit Provider Nurse Practitioner Family
DX: Z12.31 Encounter for screening mammogram for malignant neoplasm of breast (principal)
CPT/HCPCS: 77063; 77067

== ENCOUNTER → 2024-10-29 09:30 | Outpatient (BNV) | payer MEDICARE, SELFPAY | PROVIDERS: PCP Nurse Practitioner Family; Visit Provider Internal Medicine | DX: Z12.31 Encounter for screening mammogram for malignant neoplasm of breast (principal) | CPT/HCPCS: 77063; 77067 ==